=== PATIENT | male | born 1950 | race Caucasian/White ===

== ENCOUNTER 2019-07-19 08:31 | Emergency (ER) | payer MEDICARE, OTHER ==
[~2019-07-19] VITALS: Ht 177.8 cm; Wt 73.0 kg
[~2019-07-19 08:31] MED LIST: METO25TA35 PO; POTA20TA14 PO
--- NOTE | 2019-07-19 08:45 | NUR ---
THIS IS A 68 YO M [facility] W/ C/O ALTERED MENTAL STATUS. PT WAS FOUND UNRESPONSIVE IN HIS CELL THIS MORNING. PT IS CURRENTLY A&OX4, DROWSY, RESP EVEN AND UNLABORED, NADN. PT C/O DIZZINESS THAT STARTED LAST NIGHT AND INTERMITTENT NAUSEA THIS MORNING. PT REPORTS FALL IN FIRST WEEK OF JULY IN WHICH HE HIT HIS HEAD AND DID NOT GET EVALUATED FOR. HX:LEUKEMIA, AFIB, COPD. PT RESTING ON GURNEY W/ CALL LIGHT IN REACH, SIDE RAILS UPX2. CONNECTED TO ALL MONITORING, VSS. PIV TIRE REPAIRER BY EMS. LAB IN ROOM.
[2019-07-19 08:56] LABS: BASOPHILS # (AUTO) 0.02 x10^3/uL (0-0.1); BASOPHILS % (AUTO) 1 % (0-1); EOSINOPHILS # (AUTO) 0.26 x10^3/uL (0-0.4); EOSINOPHILS % (AUTO) 6 % (1-7); LYMPHOCYTES # (AUTO) 1.06 x10^3/uL (1-3.4); LYMPHOCYTES % (AUTO) 25 % (22-44); MD NO; MEAN CORPUSCULAR HEMOGLOBIN 33.2 pg (27.5-34.5); MEAN CORPUSCULAR HGB CONC 32.9 g/dL (33.2-36.2); MEAN PLATELET VOLUME 7.8 fL (7.4-10.4); MONOCYTES # (AUTO) 0.35 x10^3/uL (0.2-0.8); MONOCYTES % (AUTO) 8 % (2-9); NEUTROPHILS # (AUTO) 2.48 x10^3/uL (1.8-6.8); NEUTROPHILS % (AUTO) 60 % (42-75); PLATELET COUNT 202 x10^3/uL (130-400); RED BLOOD COUNT 4.15 x10^6/uL (4.38-5.82); RED CELL DISTRIBUTION WIDTH 14.6 % (9.4-14.8)
[2019-07-19] MEDS ORDERED: METO50TA82 PO (08:56)
[2019-07-19] MEDS ORDERED: CHOL10003 PO (08:56)
[2019-07-19] MEDS ORDERED: IPRA3AMP30 NEB (08:56)
[2019-07-19] MEDS ORDERED: METH500T7 PO (08:56)
[2019-07-19] MEDS ORDERED: GABA-827 PO (08:56)
[2019-07-19] MEDS ORDERED: IMAT400T PO (08:56)
[2019-07-19] MEDS ORDERED: ACET-2065 PO (08:56)
--- NOTE | 2019-07-19 08:56 | NUR ---
MED REC DONE.
[2019-07-19] MEDS ORDERED: SODIUM CHLORIDE 0.9% 1,000ML IVBOLUS ONE (09:00)
--- NOTE | 2019-07-19 09:01 | NUR ---
PT BACK FROM CT.
[2019-07-19 09:06] LABS: ALANINE AMINOTRANSFERASE 30 U/L (12-78); ALBUMIN 3.6 g/dL (3.4-5.0); ANION GAP 6 mmol/L (5-15); CALCIUM 8.8 mg/dL (8.5-10.1); CHLORIDE 112 mmol/L (98-107); CREATININE 1.08 mg/dL (0.7-1.3)
--- NOTE | 2019-07-19 09:07 | NUR ---
PT PROVIDED URINAL AND EDUCATED ON NEED FOR SAMPLE.
[2019-07-19 09:10] LABS: ALKALINE PHOSPHATASE 79 U/L (45-117); BILIRUBIN,TOTAL 0.6 mg/dL (0.2-1.0); TOTAL PROTEIN 6.8 g/dL (6.4-8.2)
--- NOTE | 2019-07-19 09:42 | NUR ---
URINE COLLECTED AND SENT TO LAB. PT RESTING ON GURNEY W/ CALL LIGHT IN REACH, RESP EVEN AND UNLABORED, NADN. 2 GUARDS AT BEDSIDE.
[2019-07-19 09:45] LABS: MICROSCOPIC NOT IND
[2019-07-19 09:47] LABS: ACETONE, SERUM Negative (Negative)
--- NOTE | 2019-07-19 09:51 | NUR ---
ALL TESTS RESULTED. PT IS UP FOR RECHECK AT THIS TIME.
[2019-07-19 09:53] VITALS: BP 161/95
--- NOTE | 2019-07-19 09:54 | NUR ---
PT SLEEPING ON GURNEY, RESP EVEN AND UNLABORED, VSS, NADN. 2 GUARDS AT BEDSIDE. AWAITING RECHECK.
--- NOTE | 2019-07-19 10:43 | NUR ---
Patient given discharge instructions and they have confirmed that they understand the instructions. Patient wheeled to police van.
== END 2019-07-19 10:44 | disposition home or self-care (01) ==
LOC: ED 08:38
DX: R41.82 Altered mental status, unspecified (principal); R42 Dizziness and giddiness; I10 Essential (primary) hypertension; F17.200 Nicotine dependence, unspecified, uncomplicated; J44.9 Chronic obstructive pulmonary disease, unspecified
CPT/HCPCS: 36415; 70450; 71045; 80053; 81003; 82010; 83690; 83880; 85025; 93005; 96360; 99285; J7030